=== PATIENT | male | born 1990 | race Caucasian/White ===

== ENCOUNTER 2018-06-23 16:46 | Emergency (ER) | payer OTHER ==
[~2018-06-23] VITALS: Ht 162.6 cm; Wt 65.0 kg
[2018-06-23 16:49] VITALS: Ht 162.6 cm; Wt 65.0 kg
[2018-06-23] MEDS ORDERED: TRIMETHOPRIM/SULFAMETHOX (DS) TAB PO ONE (19:00)
[2018-06-23] MEDS ORDERED: HYDROCODONE/APAP (5/325) TAB PO ONE (19:00)
[2018-06-23] MEDS ORDERED: CEPHALEXIN 500 MG CAP PO ONE (19:00)
[2018-06-23] MEDS ORDERED: DIPHTH/TET/ACEL PERTUSS (ADULT) 0.5 ML VIAL IM* ONE (19:00)
[2018-06-23] MEDS ORDERED: BACITRACIN/POLYMYXIN 28.35 GM OINT TOP ONE (19:00)
[2018-06-23] MEDS ORDERED: IBUP-1542 PO (19:58)
[2018-06-23] MEDS ORDERED: DOXY100T20 PO (19:58)
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
[2018-06-24] MEDS ORDERED: OLANZAPINE 5 MG TAB PO ONE (09:00)
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
[2018-06-26] MEDS ORDERED: ARIPIPRAZOLE 5 MG TAB PO STA (06:59)
[2018-06-26] MEDS ORDERED: ACETAMINOPHEN 500 MG TAB PO STA (08:21)
[2018-06-26] MEDS ORDERED: OLANZAPINE 5 MG TAB PO ONE (09:00)
[2018-06-26] MEDS ORDERED: MIRTAZAPINE 15 MG TAB PO ONE (21:00)
--- NOTE | 2018-06-27 05:35 | EN ---
Date/Time of Note Date/Time of Note DATE: 06/27/18 TIME: 05:34 ER Progress Note Emergency medicine follow-up note: 27-year-old man placed on a 5150 psychiatric hold for recent suicidality. He also used methamphetamines. He has no complaints at this time and his vital signs are within normal limits. He is already placed on a hold and is awaiting transfer to a psychiatric facility. Patient has no new complaints at this time. HARMEET GARCIA MD Jun 27, 2018 05:35
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
[2018-06-27 14:10] VITALS: BP 128/82; PULSE 76; RESP 18
[2018-06-27] MEDS ORDERED: IBUPROFEN 600 MG TAB PO ONE (15:00)
== END 2018-06-27 16:45 ==
LOC: FTE 16:46 → CANBEDREQ 06-26 20:13 → E/R 06-27 16:45
DX: S01.111A Laceration without foreign body of right eyelid and periocular area, initial encounter (principal); R45.851 Suicidal ideations; F17.210 Nicotine dependence, cigarettes, uncomplicated; R40.2142 Coma scale, eyes open, spontaneous, at arrival to emergency department; R40.2252 Coma scale, best verbal response, oriented, at arrival to emergency department; R40.2362 Coma scale, best motor response, obeys commands, at arrival to emergency department; X99.8XXA Assault by other sharp object, initial encounter
CPT/HCPCS: 70450; 70480; 73562; 80053; 80307; 81001; 85025; 90471; 90715; Z7502; Z7610